=== PATIENT | female | born 1935 | race Caucasian/White ===

== ENCOUNTER 2018-08-12 16:26 | Emergency (ER) | payer OTHER ==
[~2018-08-12] VITALS: Ht 162.6 cm; Wt 72.6 kg
[2018-08-12 16:32] VITALS: Ht 162.6 cm; Wt 72.6 kg
[2018-08-12 18:03] VITALS: BP 157/67
== END 2018-08-12 18:12 | disposition home or self-care (01) ==
LOC: ED 16:26
DX: S00.83XA Contusion of other part of head, initial encounter (principal); I10 Essential (primary) hypertension; E78.00 Pure hypercholesterolemia, unspecified; H40.9 Unspecified glaucoma; Z85.850 Personal history of malignant neoplasm of thyroid; Y04.8XXA Assault by other bodily force, initial encounter; Y93.89 Activity, other specified; Y92.89 Other specified places as the place of occurrence of the external cause; Y99.8 Other external cause status